=== PATIENT | female | born 1955 | race Caucasian/White ===

== ENCOUNTER 2016-08-27 10:45 | Day surgery (SDC) | payer BC ==
--- NOTE | ~2016-08-27 | EGD ---
EGD REPORT [facility] [address] [place] [address] NAME: YOLETTE UMANA : [birth year] STATUS : REG [facility] PAT#: [id number] AGE: 61 ADM/REG DATE : 08/27/16 MR#: [id number] REPORT SERV DATE: 08/27/16 DICTATED BY: HETAL LINCOLN DATE: 08/27/16 REPORT STATUS : Draft TRANSCRIBED BY: [employer] DATE: 08/27/16 Endoscopy Center Patient Name: Yolette Umana Date of : 1955 Attending MD: HETAL LINCOLN MD Procedure Date No Time: 08/27/2016 Procedure: Colonoscopy Indications: Constipation, Weight loss Referring MD: MARIVEL MURDOCK Medicines: as per anesthesia Complications: No immediate complications. Procedure: Pre-Anesthesia Assessment: - ASA Grade Assessment: II - A patient with mild systemic disease. After I obtained informed consent, the scope was passed under direct vision. Throughout the procedure, the patient's blood pressure, pulse, and oxygen saturations were monitored continuously. The PCF [id number] was introduced through the anus and advanced to the cecum, identified by appendiceal orifice and ileocecal valve. The colonoscopy was performed without difficulty. The patient tolerated the procedure. The quality of the bowel preparation was adequate to identify polyps. Findings: The perianal and digital rectal examinations were normal. Internal hemorrhoids were found during endoscopy and were mild. Impression: - Internal hemorrhoids. Recommendation: - Repeat colonoscopy in 5 years for surveillance. Procedure Code(s): --- Professional --- 08699, Colonoscopy, flexible, proximal to splenic flexure; diagnostic, with or without collection of specimen(s) by brushing or washing, with or without colon decompression (separate procedure) Diagnosis Code(s): --- Professional --- K64.8, Other hemorrhoids K59.00, Constipation, unspecified R63.4, Abnormal weight loss CPT copyright 2013 [employer]. All rights reserved. EGD REPORT [facility] [address] [address] NAME: YOLETTE UMANA : [birth year] STATUS : REG [facility] PAT#: [id number] AGE: 61 ADM/REG DATE : 08/27/16 MR#: [id number] REPORT SERV DATE: 08/27/16 DICTATED BY: HETAL LINCOLN. DATE: 08/27/16 REPORT STATUS : Draft TRANSCRIBED BY: [employer] DATE: 08/27/16 The codes documented in this report are preliminary and upon room service waiter/waitress review may be revised to meet current compliance requirements. HETAL LINCOLN MD 08/27/2016 12:21 PM This report has been signed electronically. Number of Addenda: 0 Note Initiated On: 08/27/2016 11:57 AM Scope Withdrawal Time 0 hours 6 minutes 38 seconds [address] [facility] [address] [place] [id number]
[~2016-08-27 10:45] MED LIST: AMB10 PO; ESTRACE0.5 MG PO; GELATIN PO; LEVOTHYROXIN25 MCG PO; MOVE FREE JOIN1 EACH PO; VITAMIN D400 UNI1 PO
== END 2016-08-27 23:59 | disposition home or self-care (01) ==
LOC: DMU 10:45
PROVIDERS: Internal Medicine Gastroenterology
PROC: 0DJD8ZZ Inspection of Lower Intestinal Tract, Via Natural or Artificial Opening Endoscopic (ICD-10-PCS; principal; 2016-08-27 12:00)
DX: K64.8 Other hemorrhoids (principal); F41.9 Anxiety disorder, unspecified; E03.9 Hypothyroidism, unspecified; K59.00 Constipation, unspecified; R63.4 Abnormal weight loss; Z79.899 Other long term (current) drug therapy; Z79.890 Hormone replacement therapy

== ENCOUNTER 2016-09-08 10:10 | Day surgery (SDC) | payer BC ==
--- NOTE | ~2016-09-08 | EGD ---
EGD REPORT [facility] [address] [address] NAME: YOLETTE DUNCAN : [birth year] STATUS : REG [facility] [place] PAT#: [id number] AGE: 61 ADM/REG DATE : 09/08/16 MR#: [id number] REPORT SERV DATE: 09/08/16 DICTATED BY: HETAL LINCOLN DATE: 09/08/16 REPORT STATUS : Draft [facility] DATE: 09/08/16 Endoscopy Center Patient Name: Yolette Duncan Date of : 1955 Attending MD: HETAL LINCOLN MD Procedure Date No Time: 09/08/2016 Procedure: Upper GI endoscopy Indications: Abdominal pain in the left upper quadrant, Heartburn, Suspected esophageal reflux, Abdominal bloating, Weight loss Referring MD: MARIVEL MURDOCK Medicines: as per anesthesia Complications: No immediate complications. Procedure: Pre-Anesthesia Assessment: - ASA Grade Assessment: II - A patient with mild systemic disease. After obtaining informed consent, the endoscope was passed under direct vision. Throughout the procedure, the patient's blood pressure, pulse, and oxygen saturations were monitored continuously. The GIF H190 [id number] was introduced through the mouth, and advanced to the third part of duodenum. The upper GI endoscopy was accomplished without difficulty. The patient tolerated the procedure. Findings: The examined esophagus was normal. Localized mild inflammation characterized by erythema was found in the gastric antrum. Biopsies were taken with a cold forceps for histology. A few sessile polyps were found in the gastric body. Biopsies were taken with a cold forceps for histology. The cardia and gastric fundus were normal on retroflexion. The examined duodenum was normal. Biopsies were taken with a cold forceps for histology. Impression: - Normal esophagus. - Gastritis. Biopsied. - A few gastric polyps. Biopsied. - Normal examined duodenum. Biopsied. Recommendation: - Await pathology results. - Follow an antireflux regimen. - Continue present medications. Procedure Code(s): --- Professional --- EGD REPORT [address] [place]. [address] NAME: YOLETTE DUNCAN : [birth year] STATUS : REG [facility] PAT#: [id number] AGE: 61 ADM/REG DATE : 09/08/16 MR#: [id number] REPORT SERV DATE: 09/08/16 DICTATED BY: HETAL LINCOLN. DATE: 09/08/16 REPORT STATUS : Draft TRANSCRIBED BY: [employer] DATE: 09/08/16 [id number], Esophagogastroduodenoscopy, flexible, transoral; with biopsy, single or multiple Diagnosis Code(s): --- Professional --- K29.70, Gastritis, unspecified, without bleeding K31.7, Polyp of stomach and duodenum R10.12, Left upper quadrant pain R12, Heartburn R14.0, Abdominal distension (gaseous) R63.4, Abnormal weight loss CPT copyright 2013 [employer]. All rights reserved. The codes documented in this report are preliminary and upon backhoe operator review may be revised to meet current compliance requirements. HETAL LINCOLN MD 09/08/2016 12:23 PM This report has been signed electronically. Number of Addenda: 0 Note Initiated On: 09/08/2016 11:55 AM Scope Withdrawal Time 0 hours 0 minutes [address] [place] [address] [place] [address]
== END 2016-09-08 23:59 | disposition home or self-care (01) ==
LOC: DMU 10:10
PROVIDERS: Internal Medicine Gastroenterology
PROC: 0DB98ZX Excision of Duodenum, Via Natural or Artificial Opening Endoscopic, Diagnostic (ICD-10-PCS; 2016-09-08)
PROC: 0DB68ZX Excision of Stomach, Via Natural or Artificial Opening Endoscopic, Diagnostic (ICD-10-PCS; principal; 2016-09-08 11:30)
DX: K31.7 Polyp of stomach and duodenum (principal); K31.89 Other diseases of stomach and duodenum; K29.70 Gastritis, unspecified, without bleeding; E03.9 Hypothyroidism, unspecified; Z79.899 Other long term (current) drug therapy; Z90.49 Acquired absence of other specified parts of digestive tract; Z90.710 Acquired absence of both cervix and uterus; Z98.890 Other specified postprocedural states
CPT/HCPCS: 88305